=== PATIENT | male | born 1975 | race Two or more races ===

== ENCOUNTER 2018-09-12 16:34 | Emergency (ER) | payer BC ==
[~2018-09-12] VITALS: Ht 170.2 cm; Wt 124.7 kg
--- NOTE | 2018-09-12 16:49 | Emergency Room Report ---
History of Present Illness General Source: Patient, EMS Present Illness HPI Presents after passing out. He was walking up stairs. He felt nauseated and vomited. He was leaning against his car smoking a cigarette when he passed out. He slumped to the ground. He woke up without any evidence of head trauma or seizure activity. He believes he was out for just a matter of seconds. He denies any fevers, chills, chest pain, palpitations. When this occurred he did not break out in a sweat but he was feeling nauseated. There is no hematemesis , melena or blood in his stools. He is moves his bowels normally. He has had syncope in the past. EMS transported the patient here. The patient is under tremendous amount of stress at this time. He did stop smoking 10 years ago but restarted 2 weeks ago. He denies suicidal or homicidal ideation. He states his heart rate is rapid and he is not sure why. His doctors have noted this in the past. He is not taking medication chronically. Patient denies dysuria. Allergies: Coded Allergies: No Known Allergies (Unverified , 09/12/18) Patient History Past Medical History: see triage record Social History: Reports: smoking Social History Narrative Reviewed Nursing Documentation: PMH: Agreed; PSxH: Agreed Review of Systems All Other Systems: negative except mentioned in HPI Physical Exam Vital Signs Date Time Temp Pulse Resp B/P (MAP) Pulse Ox O2 Delivery O2 Flow Rate FiO2 09/12/18 16:57 98.4 115 18 153/99 (117) 98 Room Air Sp02 EP Interpretation: reviewed, normal General Appearance: well appearing, no apparent distress, GCS 15 Head: normocephalic, atraumatic Eyes: bilateral eye normal inspection, bilateral eye PERRL, bilateral eye EOMI , bilateral eye other - Xanthelasma ENT: moist mucus membranes Neck: supple Respiratory: lungs clear, normal breath sounds Cardiovascular #1: no edema, tachycardia Cardiovascular #2: 2+ radial (R) Gastrointestinal: normal inspection, normal bowel sounds, non tender, no mass, non-distended, overweight Genitourinary: no CVA tenderness Musculoskeletal: back normal, normal range of motion Neurologic: alert, oriented x3, milk route deliverer III-XII nml as tested, motor strength/tone normal, DTRs symmetric, sensory intact, cerebellar normal, normal gait, speech normal Psychiatric: mood/affect normal Skin: normal inspection, warm/dry Medical Decision Making Diagnostic Impression: Primary Impression: Syncope Qualified Codes: R55 - Syncope and collapse Additional Impressions: Tachycardia Leukocytosis Qualified Codes: D72.829 - Elevated white blood cell count, unspecified ER Course Presents post syncopal episode. Differential includes arrhythmia, acute myocardial infarction, pulmonary embolus, dehydration, vasovagal, viral syndrome , gastritis amongst others. By his history this sounds more vasovagal. Evaluation with EKG, chest x-ray and labs. CT is not indicated as a nonfocal neurologic exam. The patient will be treated with orthostatic vital signs, cardiac rn, Pepcid and Zofran. EKG was sinus tachycardia. Chest x-ray poor inspiration. CBC with mild leukocytosis. CMP unremarkable. Initial troponin negative. Patient improved with treatment. Decreased nausea. Discussed findings with patient and treatment plan. Discussed the need to follow-up with his own doctors. Patient stable for outpatient observation and treatment. Laboratory Tests Test 09/12/18 17:10 09/12/18 20:10 White Blood Count 13.6 K/UL (4.8-10.8) H Red Blood Count 5.42 M/UL (4.70-6.10) Hemoglobin 15.6 G/DL (14.2-18.0) Hematocrit 44.7 % (42.0-52.0) Mean Corpuscular Volume 82 FL (80-99) Mean Corpuscular Hemoglobin 28.8 PG (27.0-31.0) Mean Corpuscular Hemoglobin Concent 34.9 G/DL (32.0-36.0) Red Cell Distribution Width 12.0 % (11.6-14.8) Platelet Count 321 K/UL (150-450) Mean Platelet Volume 5.5 FL (6.5-10.1) L Neutrophils (%) (Auto) 76.3 % (45.0-75.0) H Lymphocytes (%) (Auto) 14.1 % (20.0-45.0) L Monocytes (%) (Auto) 8.0 % (1.0-10.0) Eosinophils (%) (Auto) 0.6 % (0.0-3.0) Basophils (%) (Auto) 1.0 % (0.0-2.0) Prothrombin Time 10.2 SEC (9.30-11.50) Prothrombin Time INR 1.0 (0.9-1.1) PTT 27 SEC (23-33) Sodium Level 140 MMOL/L (136-145) Potassium Level 3.8 MMOL/L (3.5-5.1) Chloride Level 104 MMOL/L (98-107) Carbon Dioxide Level 28 MMOL/L (21-32) Anion Gap 8 mmol/L (5-15) Blood Urea Nitrogen 10 mg/dL (7-18) Creatinine 0.9 MG/DL (0.55-1.30) Estimate Glomerular Filtration Rate > 60 mL/min (>60) Glucose Level 102 MG/DL (74-106) Calcium Level 9.2 MG/DL (8.5-10.1) Total Bilirubin 0.4 MG/DL (0.2-1.0) Aspartate Amino Transferase (AST) 22 U/L (15-37) Alanine Aminotransferase (ALT) 39 U/L (12-78) Alkaline Phosphatase 67 U/L (46-116) Total Creatine Kinase 187 U/L (26-308) Troponin I 0.000 ng/mL (0.000-0.056) Pro-B-Type Natriuretic Peptide 13 pg/mL (0-125) Total Protein 8.1 G/DL (6.4-8.2) Albumin 3.8 G/DL (3.4-5.0) Globulin 4.3 g/dL Albumin/Globulin Ratio 0.9 (1.0-2.7) L Urine Opiates Screen Negative (NEGATIVE) Urine Barbiturates Screen Negative (NEGATIVE) Phencyclidine (PCP) Screen Negative (NEGATIVE) Urine Amphetamines Screen Negative (NEGATIVE) Urine Benzodiazepines Screen Negative (NEGATIVE) Urine Cocaine Screen Negative (NEGATIVE) Urine Marijuana (THC) Screen Negative (NEGATIVE) EKG Diagnostic Results Rate: tachycardiac Rhythm: NSR ST Segments: no acute changes Rhythm Strip Diag. Results EP Interpretation: yes Rhythm: no PVC's, no ectopy, other - ST Chest X-Ray Diagnostic Results Chest X-Ray Diagnostic Results : Chest X-Ray Ordered: Yes # of Views/Limited/Complete: 1 View Indication: Other EP Interpretation: Yes Interpretation: no consolidation, no effusion, no pneumothorax Impression: No acute disease Electronically Signed by: Electronically signed by Anton Najera MD Last Vital Signs Date Time Temp Pulse Resp B/P (MAP) Pulse Ox O2 Delivery O2 Flow Rate FiO2 09/12/18 21:07 98.6 95 20 148/78 95 Room Air Status: improved Disposition: HOME, SELF-CARE Condition: Improved Scripts Famotidine (PEPCID AC) 20 Mg Tablet 20 MG PO DAILY, #20 TAB Prov: Anton Najera MD 09/12/18 Ondansetron Odt* (ZOFRAN ODT*) 4 Mg Tab.rapdis 4 MG BC EVERY 8 HOURS, #6 TAB 0 Refills Prov: Anton Najera MD 09/12/18 Anton Najera MD Sep 12, 2018 16:49
[2018-09-12 17:00] VITALS: BP_SYST 128; BP_SYST 131; BP_SYST 132; BP_DIAS 77; BP_DIAS 88; BP_DIAS 89
--- NOTE | 2018-09-12 17:07 | Diagnostic Imaging Report ---
EXAM: XR Chest, 1 View CLINICAL HISTORY: SYNCOPE TECHNIQUE: Frontal view of the chest. COMPARISON: No relevant prior studies available. FINDINGS: Lungs: Low lung volumes with bronchovascular crowding. No consolidation, pleural effusion, or pneumothorax. Pleural space: See above. Heart: Unremarkable. No cardiomegaly. Mediastinum: Unremarkable. Bones/joints: Unremarkable. IMPRESSION: 1. Low lung volumes with bronchovascular crowding. 2. Otherwise no acute cardiopulmonary disease. 3. If there is continued concern, recommend PA and lateral chest radiographs.
--- NOTE | 2018-09-12 17:30 | NUR ---
ED Nurse Note: BIBA FROM WORK PT C/O BEING DIZZY WEAK AND NAUSEATED. PT PLACED ON MONITOR BLOOD SENT URINE PENDING.
[2018-09-12 18:00] VITALS: BP 139/7
[2018-09-12 18:18] LABS: EOSINOPHILS % (AUTO) 0.6 % (0.0-3.0); HEMATOCRIT 44.7 % (42.0-52.0); HEMOGLOBIN 15.6 G/DL (14.2-18.0); LYMPHOCYTES % (AUTO) 14.1 % (20.0-45.0); MEAN CORPUSCULAR VOLUME 82 FL (80-99); NEUTROPHILS % (AUTO) 76.3 % (45.0-75.0); PLATELET COUNT 321 K/UL (150-450); RED BLOOD COUNT 5.42 M/UL (4.70-6.10); WHITE BLOOD COUNT 13.6 K/UL (4.8-10.8)
[2018-09-12 18:41] LABS: ANION GAP 8 mmol/L (5-15); BLOOD UREA NITROGEN 10 mg/dL (7-18); CALCIUM 9.2 MG/DL (8.5-10.1); CARBON DIOXIDE 28 MMOL/L (21-32); CHLORIDE 104 MMOL/L (98-107); CREATININE 0.9 MG/DL (0.55-1.30); POTASSIUM 3.8 MMOL/L (3.5-5.1); SODIUM 140 MMOL/L (136-145)
[2018-09-12 18:49] LABS: ALANINE AMINOTRANSFERASE 39 U/L (12-78); ALBUMIN 3.8 G/DL (3.4-5.0); ALBUMIN/GLOBULIN RATIO 0.9 (1.0-2.7); ALKALINE PHOSPHATASE 67 U/L (46-116); ASPARTATE AMINO TRANSFERASE 22 U/L (15-37); BILIRUBIN,TOTAL 0.4 MG/DL (0.2-1.0); CREATINE KINASE 187 U/L (26-308)
--- NOTE | 2018-09-12 19:00 | NUR ---
ED Nurse Note: MEDS WELL TOLERATED AT BEDSIDE .
--- NOTE | 2018-09-12 19:43 | NUR ---
HAND-OFF: Report given to Aniya DEE.
[2018-09-12 20:12] VITALS: BP 143/75
[2018-09-12] MEDS ORDERED: PEPCID AC20 M2 PO (20:50)
[2018-09-12] MEDS ORDERED: ONDANSETRON ODT4 MG BC (20:50)
--- NOTE | 2018-09-12 21:06 | NUR ---
ER DISCHARGE NOTE: Patient is cleared to be discharged per ERMD, pt is aox4, on room air, with stable vital signs. pt was given dc and prescription instructions, pt was able to verbalize understanding, pt id band and iv site removed without complications. pt is able to ambulate with steady gait. pt took all belongings.
[2018-09-12 21:07] VITALS: BP 148/78
== END 2018-09-12 21:08 | disposition home or self-care (01) ==
LOC: EDBD 16:34 → EMR 17:48
DX: R55 Syncope and collapse (principal); R00.0 Tachycardia, unspecified; D72.829 Elevated white blood cell count, unspecified; F17.210 Nicotine dependence, cigarettes, uncomplicated
CPT/HCPCS: 36415; 71045; 80053; 80307; 82550; 83880; 84484; 85025; 85610; 85730; 93005; 96361; 96374; 96375; 99284; J2405; S0028